=== PATIENT | male | born 1945 | race Caucasian/White ===

== ENCOUNTER → 2017-11-06 04:10 | Outpatient (CLI) | payer MEDICARE, BC, SELFPAY ==
[2017-11-06 11:45] LABS: Cholesterol 189 mg/dL (50-200); HDL Cholesterol 35 mg/dL (40-60); LDL CHOLESTEROL 125 mg/dL (<100); Triglyceride 226 mg/dL (30-150)
[2017-11-07 18:16] LABS: Free PSA/PSA Ratio 0.15 ratio
== END ==
PROVIDERS: Urology; PCP Emergency Medicine; Visit Provider Emergency Medicine
DX: E78.5 Hyperlipidemia, unspecified (principal); R97.20 Elevated prostate specific antigen [PSA]
CPT/HCPCS: 36415; 80061; 83721; 84154

== ENCOUNTER 2017-12-19 16:28 | Outpatient (REF) | payer MEDICARE, BC, SELFPAY ==
[2017-12-19 17:53] LABS: Bilirubin Negative (Negative); Blood Negative (Negative); Glucose Negative (Negative); Ketones Trace mg/dL (Negative); Leukocyte Esterase Negative (Negative); Nitrite Negative (Negative); Specific Gravity >= 1.030 (1.005-1.025); Urobilinogen 0.2 EU/dL (Up TO 0.2); pH 5.5 (5-8)
[2017-12-19 18:08] LABS: Clarity Turbid
[2017-12-19 18:09] LABS: Epithelial Cells Negative HPF (Negative); RBC Negative (0-2); WBC 0-2 HPF (0-5)
[2017-12-19 18:10] LABS: Crystals Many Amorphous HPF (Negative)
[2017-12-19 18:11] LABS: Bacteria Negative HPF (Negative); C & S Indicated? No; Mucus Trace (Negative)
== END 2017-12-19 16:48 ==
LOC: NCHCN 16:28
PROVIDERS: PCP Emergency Medicine; Visit Provider Emergency Medicine
DX: R30.0 Dysuria (principal)
CPT/HCPCS: 81003; 81015

== ENCOUNTER → 2017-12-29 12:30 | Outpatient (BNVA) | payer MEDICARE, BC, SELFPAY | PROVIDERS: PCP Emergency Medicine; Visit Provider Nurse Practitioner Adult Health | DX: G31.09 Other frontotemporal neurocognitive disorder (principal); F02.80 Dementia in other diseases classified elsewhere, unspecified severity, without behavioral disturbance, psychotic disturbance, mood disturbance, and anxiety | CPT/HCPCS: 99213 ==

== ENCOUNTER → 2018-01-12 09:14 | Outpatient (BNVA) | payer MEDICARE, BC, SELFPAY | PROVIDERS: PCP Emergency Medicine; Visit Provider Urology | DX: R97.20 Elevated prostate specific antigen [PSA] (principal); R35.0 Frequency of micturition; Z12.11 Encounter for screening for malignant neoplasm of colon | CPT/HCPCS: 99213 ==

== ENCOUNTER 2018-01-22 10:54 | Outpatient (CLI) | payer MEDICARE, BC, SELFPAY | END 2018-01-22 11:14 | PROVIDERS: PCP Emergency Medicine; Visit Provider Surgery | DX: Z12.11 Encounter for screening for malignant neoplasm of colon (principal); Z01.818 Encounter for other preprocedural examination ==

== ENCOUNTER 2018-01-30 07:05 | Day surgery (SDC) | payer MEDICARE, BC, SELFPAY ==
[2018-01-30 07:31] VITALS: BP 135/91; PULSE 84; RESP 16; TEMP 35.2; O2SAT 99
[2018-01-30] MEDS: Lactated Ringers 1,000 ML 30 ML IV (07:44)
--- NOTE | 2018-01-30 08:45 | W.COLOREPORT ---
Date of service: 01/30/18 Time of Service: 08:15 Colonoscopy Report Date of procedure: 01/30/18 Pre-op diagnosis general: Personal history of colon polyps, and family history of colon cancer Post-op diagnosis procedure note: other (Normal colon to the cecum) Procedure: Colonoscopy to the cecum Surgeon: Wilson Morris Anesthesia proc note operative: MAC (Farzana Brown CRNA; ASA 3, Mallampati II) Estimated blood loss (mL): 0 Pathology: none sent Complications: None Disposition: same day Indications: 72-year-old male presenting for colorectal cancer screening with a personal history of colon polyps and family history: Cancer. He is been asymptomatic since his last colonoscopy in 2014, where a tubular adenoma was identified. He has since developed frontal lobe dementia along with his other comorbidities. He has been asymptomatic in regards to his GI. The colonoscopy procedure is been reviewed with him and his , and the risks discussed with him. All his questions were answered to their satisfaction. Prep: Miralax/Dulcolax (Prep Quality Good) Procedure Start Time: 08:15 Procedure End Time: 08:35 Retraction Time: 10 Findings: In examining the colon from cecum to anus, no abnormalities were found. Procedure Description: The patient was seen in the day surgery waiting area. His identification was confirmed, and procedure check. He was then brought to the procedure room. Monitoring for telemetry, blood pressure, oxygen saturation, and end tidal CO2 monitoring were applied. An appropriate time out was performed to confirm, identification, allergies, medication, procedure, was performed. Sedation was titrated for affect by the COSTUME RENTAL CLERK; Once adequate sedation was achieved, I performed a inspection of the external perineum, and a digitial rectal examination. No significant external abnormalities were noted. On digital rectal examination, there was no blood, no masses, good rectal tone, and a normal prostate. I advanced the colonoscope from the anus to the cecum under direct visualization. The cecum was identified by the ileal-cecal valve, and the appendiceal orifice. The scope was then withdrawn in circumferential manner from the cecum to the rectum. No abnormalites were noted in the colon. The scope was then withdrawn into the rectum, and retroflexed. No abnormalities were noted of the rectum or anorectal junction. The scope was then withdrawn, terminating the procedure. There were no complications during the procedure, and the patient tolerated the procedure well. He was returned to the day surgery recovery area in good condition. Plan: Will continue with routine screening for colorectal cancer according to current consensus guidelines, which is currently 5 years with a family history of colon cancer.
--- NOTE | 2018-01-30 08:49 | COLE_ITS ---
Date of service: 01/30/18 Time of Service: 08:15 Colonoscopy Report Date of procedure: 01/30/18 Pre-op diagnosis general: Personal history of colon polyps, and family history of colon cancer Post-op diagnosis procedure note: other (Normal colon to the cecum) Procedure: Colonoscopy to the cecum Surgeon: Wilson Morris Anesthesia proc note operative: MAC (Farzana Brown CRNA; ASA 3, Mallampati II) Estimated blood loss (mL): 0 Pathology: none sent Complications: None Disposition: same day Indications: 72-year-old male presenting for colorectal cancer screening with a personal history of colon polyps and family history: Cancer. He is been asymptomatic since his last colonoscopy in 2014, where a tubular adenoma was identified. He has since developed frontal lobe dementia along with his other comorbidities. He has been asymptomatic in regards to his GI. The colonoscopy procedure is been reviewed with him and his , and the risks discussed with him. All his questions were answered to their satisfaction. Prep: Miralax/Dulcolax (Prep Quality Good) Procedure Start Time: 08:15 Procedure End Time: 08:35 Retraction Time: 10 Findings: In examining the colon from cecum to anus, no abnormalities were found. Procedure Description: The patient was seen in the day surgery waiting area. His identification was confirmed, and procedure check. He was then brought to the procedure room. Monitoring for telemetry, blood pressure, oxygen saturation , and end tidal CO2 monitoring were applied. An appropriate time out was performed to confirm, identification, allergies, medication, procedure, was performed. Sedation was titrated for affect by the DIRECTOR SALES; Once adequate sedation was achieved, I performed a inspection of the external perineum, and a digitial rectal examination. No significant external abnormalities were noted. On digital rectal examination, there was no blood, no masses, good rectal tone, and a normal prostate. I advanced the colonoscope from the anus to the cecum under direct visualization. The cecum was identified by the ileal-cecal valve, and the appendiceal orifice. The scope was then withdrawn in circumferential manner from the cecum to the rectum. No abnormalites were noted in the colon. The scope was then withdrawn into the rectum, and retroflexed. No abnormalities were noted of the rectum or anorectal junction. The scope was then withdrawn, terminating the procedure. There were no complications during the procedure, and the patient tolerated the procedure well. He was returned to the day surgery recovery area in good condition. Plan: Will continue with routine screening for colorectal cancer according to current consensus guidelines, which is currently 5 years with a family history of colon cancer.
--- NOTE | 2018-01-30 09:05 | PDOC.DSDIS_ITS ---
Discharge Plan Disposition Patient Disposition: HOME Condition: Good Discharge Details Reason For Visit: colorectal cancer screen Attending Provider: Wilson Morris Primary Care Provider: Jordan Piña Home Meds and New Rx's Prescriptions: Continue melatonin 3 mg tablet 3 mg PO HS PRNRF: 0 aspirin [Aspirin Low-Strength] 81 MG tablet,chewable 81 mg PO DAILY RF: 0 nitroglycerin 0.4 MG tablet, sublingual 0.4 mg Sublingual PRN RF: 0 naproxen sodium [Aleve] 220 MG tablet 220 mg PO PRN PRNRF: 0 lisinopril 5 MG tablet 5 mg PO DAILY Qty: 90 RF: 3 rosuvastatin [Crestor] 20 MG tablet 20 mg PO DAILY Qty: 90 RF: 3 quetiapine 25 mg tablet 12.5 mg PO HS Qty: 30 RF: 3 Discharge Instructions Instructions: Colonoscopy (DC) Stand Alone Forms: Oliver Dan (DSU) Activity:: Activity as Tolerated Diet:: As Tolerated Discharge Orders Discharge Orders: Discharge Order (Routine); Ordered 01/30/18 Ordered By: Wilson Morris DS: Diagnosis Discharge Diagnosis (1) Family history of malignant neoplasm of digestive organ: Status: Acute Asessment and Plan: Colonoscopy performed Colonoscopy Report Date of procedure: 01/30/18 Pre-op diagnosis general: Personal history of colon polyps, and family history of colon cancer Post-op diagnosis procedure note: other (Normal colon to the cecum) Procedure: Colonoscopy to the cecum Surgeon: Wilson Morris Anesthesia proc note operative: MAC (Farzana Brown CRNA; ASA 3, Mallampati II) Estimated blood loss (mL): 0 Pathology: none sent Complications: None Disposition: same day Indications: 72-year-old male presenting for colorectal cancer screening with a personal history of colon polyps and family history: Cancer. He is been asymptomatic since his last colonoscopy in 2014, where a tubular adenoma was identified. He has since developed frontal lobe dementia along with his other comorbidities. He has been asymptomatic in regards to his GI. The colonoscopy procedure is been reviewed with him and his , and the risks discussed with him. All his questions were answered to their satisfaction. Prep: Miralax/Dulcolax (Prep Quality Good) Procedure Start Time: 08:15 Procedure End Time: 08:35 Retraction Time: 10 Findings: In examining the colon from cecum to anus, no abnormalities were found. Procedure Description: The patient was seen in the day surgery waiting area. His identification was confirmed, and procedure check. He was then brought to the procedure room. Monitoring for telemetry, blood pressure, oxygen saturation , and end tidal CO2 monitoring were applied. An appropriate time out was performed to confirm, identification, allergies, medication, procedure, was performed. Sedation was titrated for affect by the CORPORATE TAX MANAGER; Once adequate sedation was achieved, I performed a inspection of the external perineum, and a digitial rectal examination. No significant external abnormalities were noted. On digital rectal examination, there was no blood, no masses, good rectal tone, and a normal prostate. I advanced the colonoscope from the anus to the cecum under direct visualization. The cecum was identified by the ileal-cecal valve, and the appendiceal orifice. The scope was then withdrawn in circumferential manner from the cecum to the rectum. No abnormalites were noted in the colon. The scope was then withdrawn into the rectum, and retroflexed. No abnormalities were noted of the rectum or anorectal junction. The scope was then withdrawn, terminating the procedure. There were no complications during the procedure, and the patient tolerated the procedure well. He was returned to the day surgery recovery area in good condition. Plan: Will continue with routine screening for colorectal cancer according to current consensus guidelines, which is currently 5 years with a family history of colon cancer. (2) Personal history of colonic polyps: Status: Acute Asessment and Plan: Colonoscopy performed
[2018-01-30 09:15] VITALS: BP 169/111; PULSE 75; RESP 18; TEMP 36; O2SAT 99
== END 2018-01-30 09:40 | disposition home or self-care (01) ==
PROVIDERS: PCP Emergency Medicine; Visit Provider Surgery
PROC: 0DJD8ZZ Inspection of Lower Intestinal Tract, Via Natural or Artificial Opening Endoscopic (ICD-10-PCS; CPT 45378; principal; 2018-01-30 08:15)
DX: Z12.11 Encounter for screening for malignant neoplasm of colon (principal); Z86.010 Personal history of colon polyps; Z80.0 Family history of malignant neoplasm of digestive organs; I10 Essential (primary) hypertension
CPT/HCPCS: G0105

== ENCOUNTER 2018-04-21 11:39 | Outpatient (CLI) | payer MEDICARE, BC, SELFPAY ==
[2018-04-21 13:00] LABS: Cholesterol 201 mg/dL (50-200); HDL Cholesterol 40 mg/dL (40-60); LDL CHOLESTEROL 125 mg/dL (<100); Triglyceride 204 mg/dL (30-150)
== END 2018-04-21 11:59 ==
PROVIDERS: PCP Emergency Medicine; Visit Provider Emergency Medicine
DX: E78.5 Hyperlipidemia, unspecified (principal)
CPT/HCPCS: 36415; 80061; 83721

== ENCOUNTER → 2018-04-27 13:04 | Outpatient (BNVA) | payer MEDICARE, BC, SELFPAY | PROVIDERS: PCP Emergency Medicine; Visit Provider Nurse Practitioner Adult Health | DX: G31.09 Other frontotemporal neurocognitive disorder (principal); F02.80 Dementia in other diseases classified elsewhere, unspecified severity, without behavioral disturbance, psychotic disturbance, mood disturbance, and anxiety | CPT/HCPCS: 99213 ==

== ENCOUNTER 2018-07-14 01:25 | Outpatient (CLI) | payer MEDICARE, BC, SELFPAY ==
[2018-07-14 10:31] LABS: Cholesterol 188 mg/dL (50-200); HDL Cholesterol 33 mg/dL (40-60); LDL CHOLESTEROL 111 mg/dL (<100); Triglyceride 277 mg/dL (30-150)
[2018-07-15 16:42] LABS: Free PSA/PSA Ratio 0.17 ratio
== END 2018-07-14 01:45 ==
PROVIDERS: Urology; PCP Emergency Medicine; Visit Provider Emergency Medicine
DX: R97.20 Elevated prostate specific antigen [PSA] (principal); I25.10 Atherosclerotic heart disease of native coronary artery without angina pectoris; E78.5 Hyperlipidemia, unspecified; I10 Essential (primary) hypertension; F03.90 Unspecified dementia, unspecified severity, without behavioral disturbance, psychotic disturbance, mood disturbance, and anxiety
CPT/HCPCS: 36415; 80061; 83721; 84154

== ENCOUNTER → 2018-07-17 11:11 | Outpatient (BNVA) | payer MEDICARE, BC, SELFPAY | PROVIDERS: PCP Emergency Medicine; Visit Provider Urology | DX: N40.0 Benign prostatic hyperplasia without lower urinary tract symptoms (principal); R97.20 Elevated prostate specific antigen [PSA] | CPT/HCPCS: 99213 ==

== ENCOUNTER 2018-09-04 11:03 | Outpatient (CLI) | payer MEDICARE, BC, MEDICAID, SELFPAY ==
[2018-09-04 13:11] LABS: Calculated LDL 80; Cholesterol 178 mg/dL (50-200); HDL Cholesterol 31 mg/dL (40-60); Triglyceride 337 mg/dL (30-150)
== END 2018-09-04 11:23 ==
PROVIDERS: PCP Emergency Medicine; Visit Provider Emergency Medicine
DX: E78.5 Hyperlipidemia, unspecified (principal)
CPT/HCPCS: 36415; 80061; 83721

== ENCOUNTER → 2018-10-22 12:32 | Outpatient (BNVA) | payer MEDICARE, BC, SELFPAY | PROVIDERS: PCP Emergency Medicine; Visit Provider Nurse Practitioner Adult Health | DX: G31.09 Other frontotemporal neurocognitive disorder (principal); F02.80 Dementia in other diseases classified elsewhere, unspecified severity, without behavioral disturbance, psychotic disturbance, mood disturbance, and anxiety | CPT/HCPCS: 99213 ==

== ENCOUNTER 2018-12-27 14:14 | Emergency (ER) | payer MEDICARE, BC, MEDICAID, SELFPAY ==
[2018-12-27] VITALS (54 sets, daily range): BP systolic 135–139; BP diastolic 79–83; PULSE 85–118; RESP 13–44; TEMP 37.1; O2SAT 94–99
--- NOTE | 2018-12-27 14:42 | ED.GENADUL_ITS ---
Discharge Plan Disposition Patient Disposition: HOME Condition: Improving Discharge Details Chief Complaint: SOB Clinical Impression: Acute exacerbation of chronic obstructive pulmonary disease (COPD) Primary Care Provider: Jordan Piña ED Provider: Red Gaines Home Meds and New Rx's Prescriptions: New prednisone 20 mg tablet 40 mg PO DAILY 5 Days Qty: 10 RF: 0 azithromycin 250 mg tablet See Rx Instructions .ROUTE .COMPLEX Qty: 6 RF: 0 Continued melatonin 3 mg tablet 5 mg PO HS RF: 0 rosuvastatin 40 mg tablet 40 mg PO DAILY RF: 0 Symbicort 160-4.5 mcg/actuation HFA aerosol inhaler 2 puff IH ONCE Qty: 10.2 RF: 0 aspirin [Aspirin Low-Strength] 81 MG tablet,chewable 81 mg PO DAILY RF: 0 nitroglycerin 0.4 MG tablet, sublingual 0.4 mg Sublingual PRN RF: 0 naproxen sodium [Aleve] 220 MG tablet 220 mg PO PRN PRNRF: 0 lisinopril 5 mg tablet 5 mg PO DAILY Qty: 90 RF: 3 quetiapine 25 mg tablet 25 mg PO BID Qty: 60 RF: 3 Discharge Instructions Instructions: COPD (Chronic Obstructive Pulmonary Disease) (ED) Additional Instructions: Home to rest today. Continue all regularly prescribed medications. May use the provided albuterol inhaler for coughing spasm, wheezing as instructed. Return if you are using the inhaler more than every 4 hours. Take antibiotics as prescribed, take prednisone as prescribed. Follow-up in clinic with Dr. Piña for recheck if not improving in 5 days time. Medical Decision Making Pleasant 72-year-old male presents with his from home with 2 to 3 days of worsening cough with congestion and associated wheeze. He has had some mild shortness of breath since having pneumonia in September, recently started Symbicort on December 15. He arrives with mildly elevated pulse of 118, normal blood pressure 139/83, he is afebrile and oxygenating 98% on room air. Exam reveals diffuse scattered wheezes with few rhonchi. Patient given DuoNeb inhaler, IV placed, given Solu- Medrol, referred for chest x-ray, EKG, laboratory testing. Patient improved with administration of DuoNeb with correction of pulse to 85, with no change to normal oxygenation. Chest x-ray without focal infiltrate. Labs are notable for a normal BNP, negative troponin, unremarkable CBC, note of discretely elevated AST 43, ALT 71, total bili of 0.5. Consistent with acute exacerbation of COPD. Family admits to some struggle with learning to use inhalers at home. Will treat with a course of prednisone as well as antibiotics. CC: Dr. Piña Lab Data Lab results reviewed: Yes I reviewed the patient's lab results. Labs: Laboratory Results - last 24 hr 12/27/18 12/27/18 14:45 14:45 WBC 5.40 RBC 4.89 Hgb 14.6 Hct 44.1 MCV 90.2 MCH 29.9 MCHC 33.1 RDW 13.9 Plt Count 187 MPV 9.4 Immature Gran % 0.2 Neutrophils % 61.1 Lymphocytes % 17.6 Monocytes % 12.4 Eosinophils % 7.6 Basophils % 1.1 Absolute Neutrophils 3.30 Absolute Lymphocytes 0.95 L Absolute Monocytes 0.67 Absolute Eosinophils 0.41 Absolute Basophils 0.06 Sodium 143 Potassium 4.2 Chloride 108 H Carbon Dioxide 26.5 Anion Gap 8.5 BUN 12 Creatinine 1.19 Estimated GFR/1.73 m2 >= 60.00 Glucose 116 H Calcium 8.4 L Magnesium 2.0 Total Bilirubin 0.5 AST 43 H ALT 71 H Alkaline Phosphatase 73 Troponin I < 0.05 NT-Pro-B Natriuret Pep 37 Total Protein 6.9 Albumin 3.6 ECG Data Attestation: I personally reviewed and interpreted this ECG (s) as follows: Interpretation: Sinus tachycardia with a rate of 108, the QRS is narrow, IA interval unremarkable, no ST segment elevation present HPI General Mode of arrival: ambulatory . Date/Time Provider Initiated Documentation: 12/27/18 14:16 . Limitations to Documentation: no limitations . Information obtained by: patient and family . History of Present Illness 72 year old M presents to the emergency department with the chief complaint of Cough and wheezing, worse over 2 to 3 days time, described as moderate and similar to prior episodes, Quality is described as dull, and is localized to the chest. Patient reports no radiation. Patient started experiencing this day(s) and it has been constant. No relieving factors improve symptom(s), No exacerbating factors reported . Patient notes cough and shortness of breath; denies fever/chills and syncope. Patient did receive the following treatments prior to arrival, none Related Data Home Medications Medication Instructions Recorded Confirmed aspirin [Aspirin Low-Strength] 81 mg PO DAILY tab-cap 09/01/12 12/27/18 nitroglycerin 0.4 mg SUBLINGUAL PRN 09/01/13 12/27/18 naproxen sodium [Aleve] 220 mg PO PRN PRN 11/20/15 12/27/18 melatonin 3 mg tablet 5 mg PO HS tab 09/04/18 12/27/18 lisinopril 5 mg tablet 5 mg PO DAILY #90 tab-cap 09/17/18 12/27/18 rosuvastatin 40 mg tablet 40 mg PO DAILY tab 11/06/18 12/27/18 quetiapine 25 mg tablet 25 mg PO BID #60 tab 11/23/18 12/27/18 budesonide-formoterol HFA 160 2 puff IH ONCE #10.2 gm 12/15/18 12/27/18 mcg-4.5 mcg/actuation aerosol inhaler azithromycin See Rx Instructions .ROUTE 12/27/18 .COMPLEX #6 tab prednisone 40 mg PO DAILY 5 Days #10 tab 12/27/18 Previous Rx's Medication Instructions Recorded lisinopril 5 mg tablet 5 mg PO DAILY #90 tab-cap 09/17/18 quetiapine 25 mg tablet 25 mg PO BID #60 tab 11/23/18 budesonide-formoterol HFA 160 2 puff IH ONCE #10.2 gm 12/15/18 mcg-4.5 mcg/actuation aerosol inhaler azithromycin See Rx Instructions .ROUTE 12/27/18 .COMPLEX #6 tab prednisone 40 mg PO DAILY 5 Days #10 tab 12/27/18 Allergies Allergy/AdvReac Type Severity Reaction Status Date / Time No Known Allergies Allergy Verified 12/15/18 11:46 General Stated Complaint: SOB DELFINO: 3 Review of Systems Review of Systems Narrative: No travel, no edema, some weight gain since starting Seroquel. Cough with congestion. 8 systems reviewed and otherwise negative [facility] Medical History Basal cell carcinoma (Chronic) left axilla 2007 Benign prostatic hyperplasia (Chronic) Elevated PSA (Chronic 11/20/15) Family history of malignant neoplasm of digestive organ (Acute) Frontotemporal dementia (Chronic 03/07/16) Hemorrhoids (Chronic) Hyperlipidemia (Chronic) Malignant neoplasm of skin (Resolved) BCCa-axilla NSTEMI (non-ST elevated myocardial infarction) (Acute 09/01/13) 2 stents Primary malignant neoplasm of skin of trunk (Resolved) Prostatic hypertrophy (Chronic) White coat syndrome with hypertension (Chronic) Surgical History Colonoscopy - IV Sedation (09/15/12) DR. Angelina HEWITT, tubular adenoma, repeat 5 years EXCISION DUPUYTREN'S CONTACTURE (01/12/16) RIGHT LITTLE FINGER/DR. MEJÍA H/O colonoscopy (Resolved) dr cabrera, no abnormalities, repeat in 5 years Stent placement 2010; x 2 Family History Mother Hyperlipidemia Father Essential hypertension Heart disease Hyperlipidemia Myocardial infarction Stroke Brother No problems noted. Brother CHF (congestive heart failure) Neoplasm COLON Brother Personal history of malignant neoplasm COLON FAMILY HISTORY CAD (coronary artery disease) Son No problems noted. Son No problems noted. Social History Smoking/Tobacco Use Status: Former Tobacco Use Alcohol Intake: former Drug use: Never Kala/Quaker: Restorationist Exam Narrative Exam Narrative: GEN: awake, alert, oriented 3. Pleasant, well groomed, interactive. HEAD: Normocephalic, atraumatic ENT: Mucous membranes moist, oropharynx unremarkable, External ear exam unremarkable EYES: PERRL, EOMI NECK: Full ROM, no KINSEY, no menigismus CHEST/RESP: Nontender, bilateral end expiratory wheeze, few scattered rhonchi CARDIOVASCULAR: RRR, no murmur, rub humza. 2+ Rad pulse bilateral ABDOMEN: Soft, nontender, no mass. +Bowel sounds EXT: Full ROM, no edema, no rash Neuro: Grossly normal neurologic exam, conversant, interactive. Psych: Speech fluent, thoughts congruent, affect normal Course Vital Signs Vital signs: Vital Signs Temperature 37.1 C 12/27/18 14:26 Pulse 118 H 12/27/18 14:26 Blood Pressure 139/83 12/27/18 14:26 Pulse Oximetry 98 12/27/18 14:26 Temperature 37.1 C 12/27/18 14:26 Temperature Source Skin 12/27/18 14:26 Pulse 118 H 12/27/18 14:26 Blood Pressure 139/83 12/27/18 14:26 Blood Pressure Position Sitting 12/27/18 14:26 Pulse Oximetry 98 12/27/18 14:26 Oxygen Delivery Method Room Air 12/27/18 14:26 Oxygen Flow Rate 0 12/27/18 14:26
[2018-12-27] MEDS: Normal Saline Flush 10 ML SYR IVP (14:45)
[2018-12-27] MEDS: Albuterol/Ipratropium 3 ML UPD VIAL (14:46)
[2018-12-27] MEDS: methylPREDNISolone SUCC 125 MG VIAL IVP (14:51)
[2018-12-27 15:05] LABS: Abs Immature Grans 0.01 k/cumm (0.0-0.09); Absolute Basophil Count 0.06 k/cumm (0.0-0.2); Absolute Eosinophil Count 0.41 k/cumm (0.0-0.7); Absolute Lymphocyte Count 0.95 k/cumm (1.2-3.4); Absolute Monocyte Count 0.67 k/cumm (0.11-0.7); Basophils % 1.1; Eosinophils % 7.6; HCT 44.1 % (40.0-50.0); HGB 14.6 g/dL (13.5-17.5); Immature Grans % 0.2; Lymphocytes % 17.6; Mean Corp. HGB Concentration 33.1 g/dL (32.0-36.0); Mean Corpuscular Hemoglobin 29.9 pg (27.0-33.0); Mean Corpuscular Volume 90.2 fL (80-95); Mean Platelet Volume 9.4 fL (8.0-11.0); Monocytes % 12.4; Neutrophils % 61.1; Platelet Count 187 x1000/uL (130-400); RBC 4.89 m/cumm (4.50-6.00); RBC Distribution Width 13.9 % (11.8-14.1)
--- NOTE | 2018-12-27 15:07 | DI.RAD_ITS ---
EXAM: XR CHEST 2V PA LATERAL CLINICAL HISTORY: Cough and wheezing. TECHNIQUE: 2D digital imaging was performed. COMPARISON: CHEST 2 VIEWS PA,LAT from 04/05/2011 FINDINGS: LUNGS: Clear. No pleural effusion or pneumothorax is present. HEART: Normal. MEDIASTINUM: Normal. OTHER FINDINGS:Normal. Bones: No acute osseous abnormality is present. IMPRESSION: No acute pulmonary findings.
[2018-12-27 15:18] LABS: ALT 71 U/L (16-63); AST 43 U/L (15-37); Albumin 3.6 g/dL (3.4-5.0); Alkaline Phosphatase 73 U/L (46-116); Anion Gap 8.5 mmol/L (3-11); BUN 12 mg/dL (7-18); Bilirubin, Total 0.5 mg/dL (0.2-1.0); CO2 26.5 mmol/L (21.0-32.0); CREATININE 1.19 mg/dL (0.70-1.30); Calcium 8.4 mg/dL (8.5-10.1); Chloride 108 mmol/L (98-107); Glucose 116 mg/dL (70-100); NT-proBNP 37 pg/mL; Potassium 4.2 mmol/L (3.5-5.1); Sodium 143 mmol/L (136-145); Total Protein 6.9 g/dL (6.4-8.2)
[2018-12-27 15:21] LABS: Troponin I < 0.05 ng/mL (0.00-0.06)
--- NOTE | 2018-12-27 15:34 | DI.VRAD_ITS ---
PROCEDURE INFORMATION: Exam: XR Chest, 2 Views Exam date and time: 12/27/2018 3:07 PM Clinical history: 72 years old, male; Other: Cough, wheezing TECHNIQUE: Imaging protocol: XR of the chest Views: 2 views. COMPARISON: No relevant prior studies available. FINDINGS: Lungs: Unremarkable. No consolidation. Pleural space: Right apical pleural thickening. No pleural effusion. No pneumothorax. Heart/Mediastinum: Unremarkable. No cardiomegaly. Bones/joints: Unremarkable for age. IMPRESSION: No acute findings. Dictated and Authenticated by: Mimi Graves MD. Ordering:MUSA Moon MD
[2018-12-27] MEDS: Albuterol HFA 8 GM 60 PUFF INH IH (15:53)
[2018-12-27] MEDS: Inhaler, Assist Device 1 EACH MC (15:59)
== END 2018-12-27 16:07 | disposition home or self-care (01) ==
PROVIDERS: Emergency Provider Emergency Medicine; PCP Emergency Medicine
DX: J44.1 Chronic obstructive pulmonary disease with (acute) exacerbation (principal); Z87.891 Personal history of nicotine dependence
CPT/HCPCS: 36415; 80053; 93005; 94640; 96374; 99285; 71046; 83735; 83880; 84484; 85025; 93010; 99284; J2930; J7620

== ENCOUNTER 2019-01-18 09:48 | Outpatient (CLI) | payer MEDICARE, BC, MEDICAID, SELFPAY ==
[2019-01-19 10:37] LABS: Free PSA/PSA Ratio 0.16 ratio
== END 2019-01-18 10:08 ==
PROVIDERS: PCP Emergency Medicine; Visit Provider Urology
DX: R97.20 Elevated prostate specific antigen [PSA] (principal)
CPT/HCPCS: 36415; 84154

== ENCOUNTER → 2019-01-19 12:50 | Outpatient (BNVA) | payer MEDICARE, BC, SELFPAY | PROVIDERS: PCP Emergency Medicine; Referring Provider Emergency Medicine; Visit Provider Urology | DX: N40.0 Benign prostatic hyperplasia without lower urinary tract symptoms (principal); R97.20 Elevated prostate specific antigen [PSA] | CPT/HCPCS: 99213 ==

== ENCOUNTER 2019-01-25 02:15 | Outpatient (CLI) | payer MEDICARE, BC, SELFPAY ==
[2019-01-25] MEDS: Inhaler, Assist Device 1 EACH MC (08:46)
[2019-01-25] MEDS: Albuterol HFA 18 GM 200 PUFF INH IH (08:47)
--- NOTE | 2019-01-25 10:34 | PFT_ITS ---
JANUARY 25, 2019 REQUESTING PROVIDER: Dr. Jordan Piña SPIROMETRY: No evidence of obstructive airways disease but there is significant bronchodilator response. This likely represents an effort related phenomenon. LUNG VOLUME: Shows no evidence of restriction. DIFFUSION CAPACITY: Not measured because the patient was unable to carry out accept DLCO maneuver. AIRWAYS RESISTANCE: Normal. IMPRESSION: Overall normal pulmonary function study. The significant bronchodilator response is likely related to a better effort. Clinical correlation is recommended.
== END 2019-01-25 02:35 ==
PROVIDERS: PCP Emergency Medicine; Visit Provider Emergency Medicine
DX: R06.09 Other forms of dyspnea (principal); R05 Cough; R06.2 Wheezing; Z87.891 Personal history of nicotine dependence
CPT/HCPCS: 94060; 94726

== ENCOUNTER → 2019-04-20 11:03 | Outpatient (BNVA) | payer MEDICARE, BC, SELFPAY | PROVIDERS: PCP Emergency Medicine; Referring Provider Emergency Medicine; Visit Provider Nurse Practitioner Adult Health | DX: G31.09 Other frontotemporal neurocognitive disorder (principal); F02.80 Dementia in other diseases classified elsewhere, unspecified severity, without behavioral disturbance, psychotic disturbance, mood disturbance, and anxiety | CPT/HCPCS: 99213 ==

== ENCOUNTER → 2019-10-14 14:25 | Outpatient (BNVA) | payer MEDICARE, BC, SELFPAY | PROVIDERS: PCP Emergency Medicine; Referring Provider Emergency Medicine; Visit Provider Urology | DX: N39.41 Urge incontinence (principal); R97.20 Elevated prostate specific antigen [PSA] | CPT/HCPCS: 99213 ==

== ENCOUNTER 2019-10-14 15:02 | Outpatient (REF) | payer MEDICARE, BC, MEDICAID, SELFPAY ==
[2019-10-15 17:31] LABS: Free PSA/PSA Ratio 0.17 ratio
== END 2019-10-14 15:22 ==
LOC: LBN 15:02
PROVIDERS: PCP Emergency Medicine; Visit Provider Urology
DX: R97.20 Elevated prostate specific antigen [PSA] (principal)
CPT/HCPCS: 84154

== ENCOUNTER → 2019-10-19 11:10 | Outpatient (BNVA) | payer MEDICARE, BC, MEDICAID, SELFPAY | PROVIDERS: PCP Emergency Medicine; Referring Provider Emergency Medicine; Visit Provider Nurse Practitioner Adult Health | DX: G31.09 Other frontotemporal neurocognitive disorder (principal); F02.80 Dementia in other diseases classified elsewhere, unspecified severity, without behavioral disturbance, psychotic disturbance, mood disturbance, and anxiety | CPT/HCPCS: 99213 ==

== ENCOUNTER → 2020-04-18 07:35 | Outpatient (BNVA) | payer MEDICARE, BC, MEDICAID, SELFPAY | PROVIDERS: PCP Emergency Medicine; Referring Provider Emergency Medicine; Visit Provider Nurse Practitioner Adult Health | DX: G31.09 Other frontotemporal neurocognitive disorder (principal); F02.80 Dementia in other diseases classified elsewhere, unspecified severity, without behavioral disturbance, psychotic disturbance, mood disturbance, and anxiety | CPT/HCPCS: 99213; 99443 ==